=== PATIENT | female | born 1980 | race Caucasian/White ===

== ENCOUNTER 2023-09-06 07:26 | Outpatient (AMB) | payer OTHER, SELFPAY ==
--- NOTE | 2023-09-06 07:29 | MHC.OFFVIS ---
Intake Vital Signs 09/06/23 07:39 Weight 217 lb 6 oz BP 140/100 H Blood Pressure Location Rt brachial Position Sitting Pulse 86 Pulse Source Pulse Oximeter Pulse Oximetry (%) 97 Oxygen Delivery Method Room Air Intake Visit Reasons: F/u to re-establish for Botox - Conf Intake Note: Re establish Botox injection Senior Contract Specialist Required: No Allergies Yellow food dyi Adverse Reaction (Severe, Uncoded 09/06/23 07:33) Triggers migraines Nicoderm patch Adverse Reaction (Intermediate, Uncoded 09/06/23 07:33) Palpatation Amatriptan Adverse Reaction (Uncoded 09/06/23 07:33) Palpatation Medication List - Last Reconciled 09/06/23 by Becca King MD [id number]-liysdeljaalqd-isjn 50-325-40 mg 1 tab PO Q4H PRN lorazepam 1 mg PO DAILY PRN metoprolol tartrate 25 mg PO BID topiramate 50 mg PO DAILY HPI HPI Comments History of Present Illness Details 43y/o female with chronic migraines since her teenage years comes for reestablishing care and treatment with botox.The migraines are usually a pounding bitemporal headache with photophobia, phonophobia, sensitivity to smells, vomiting, occasional visual aura . They can last 3-5 days Medications tried- sumatriptan, zolmitriptan, almotriptan ( caused chest pain and palpitations), excedrin migraine, fiorciet Preventive medications tried- Vit B2 , propranolol, verapramil, gabapentin, topiramate , magnesium she still has 20 migraine days a month and misses work 2-3days a month. she was on botox for 3 years and had a good response - 1 migraine day/month . But she lost follow up when my practice location changed. [facility] Medical History (Updated 09/06/23 @ 08:14 by Becca King MD) Chronic migraine without aura HTN (hypertension) Arthritis, hip Anxiety Surgical History History of hip replacement Family History Maternal Grandmother Breast cancer HTN (hypertension) Mother Heart disease Father Heart disease HTN (hypertension) Bladder cancer Family/Other Psoriasis Alcohol intake: current Alcohol intake frequency: holidays/special occasions only Patient Tobacco Use Status: Current everyday Tobacco user Use of substances other than those prescribed or required for medical reasons: No Physical Exam Vital Signs: Last Vital Signs Pulse 86 09/06/23 07:39 BP 140/100 H 09/06/23 07:39 Pulse Ox 97 09/06/23 07:39 Oxygen Delivery Method Room Air 09/06/23 07:39 Const General: cooperative, healthy appearing and comfortable Nutritional Appearance: overweight Orientation/consciousness: patient oriented x3 Neuro General: patient oriented x3, tone normal, moves all extremities and no focal motor deficits Cranial nerves: Yes Facial sensation intact/muscles of mastication intact, Yes Bilaterally intact EOM present, Yes Nystagmus not present, Yes Normal facial strength present, Yes Midline tongue present and Yes Symmetric palate elevation present Cognition (Neuro): normal cognition Motor exam (neuro): 5/5 motor strength present throughout and Normal motor muscle tone present throughout Assessment & Plan Assessment & Plan (1) Chronic migraine without aura: Code(s): G43.709 - Chronic migraine without aura, not intractable, without status migrainosus Plan Restart botox for management of migraines I will trial her on nurtec 75mg PRN for acute treatment. Medications: New rimegepant (Nurtec ODT) 75 mg PO Q OTHER DAY PRN 10 tabs 3RF migraine headache rimegepant (Nurtec ODT) 75 mg PO Q OTHER DAY PRN 10 tabs 3RF migraine headache ondansetron 4 mg PO Q8H PRN 20 tabs 2RF nausea and vomiting Coding Level of Care Code Est Pt Level 4 (70305) Diagnoses Chronic migraine without aura G43.709
[2023-09-06 07:39] VITALS: BP 140/100; PULSE 86; O2SAT 97
== END 2023-09-06 08:15 | disposition home or self-care (01) ==
PROVIDERS: PCP Nurse Practitioner Family; Visit Provider Psychiatry & Neurology Neurology
DX: G43.709 Chronic migraine without aura, not intractable, without status migrainosus (principal)
CPT/HCPCS: 99214

== ENCOUNTER → 2023-09-06 07:26 | Outpatient (BNVA) | payer OTHER, SELFPAY | PROVIDERS: PCP Nurse Practitioner Family; Visit Provider Psychiatry & Neurology Neurology | DX: G43.709 Chronic migraine without aura, not intractable, without status migrainosus (principal) | CPT/HCPCS: 99212 ==

== ENCOUNTER 2023-10-17 07:46 | Outpatient (AMB) | payer OTHER, SELFPAY ==
--- NOTE | 2023-10-17 08:04 | MHC.OFFVIS ---
Intake Intake Visit Reasons: Botox-Confirmed Intake Note: Patient presents for botox Allergies Yellow food dyi Adverse Reaction (Severe, Uncoded 10/17/23 08:13) Triggers migraines Nicoderm patch Adverse Reaction (Intermediate, Uncoded 10/17/23 08:13) Palpatation Amatriptan Adverse Reaction (Uncoded 10/17/23 08:13) Palpatation Medication List - Last Reconciled 10/17/23 by Becca King MD enuksclxwa-rddclrdqifrbj-qivu 50-325-40 mg 1 tab PO Q4H PRN lorazepam 1 mg PO DAILY PRN metoprolol tartrate 25 mg PO BID ondansetron 4 mg PO Q8H PRN rimegepant (Nurtec ODT) 75 mg PO Q OTHER DAY PRN topiramate 50 mg PO DAILY HPI HPI Comments History of Present Illness Details ? 43y/o female comes for treatment of migraines with botox .How many migraine days prior to botox 20-25 ??? Most frequent reported adverse reactions following injection of botox for chronic migraine include neck pain (9%), headache(5%), eyelid ptosis(4%), migraine(4%), muscular weakness(4%), musculuskeletal stiffness(4%), bronchitis(3%), injection site pain (3%), musculoskeletal pain(3%), myalgia(3%), facial paresis(2%), HTN(2%) and muscle spasms(2%) were discussed in detail. ??? Botulinum toxin typeA 200units Lot no [id number] expiration Nov 2025 was diluted with 4 cc of normal saline . ??? Muscles injected- ??? Frontalis 4 sites ??? Procerus 1 site ??? Sports Physician- 2 sites ??? Temporalis- 8 sites ??? Occipitalis- 6 sites ??? Cervical paraspinals- 4 sites ??? Trapezius- 6 sites- 10 units each ??? 5 units each in 31 site ??? Total use- 185units ??? Discarded-15units [facility] Medical History Chronic migraine without aura HTN (hypertension) Arthritis, hip Anxiety Surgical History History of hip replacement Family History Maternal Grandmother Breast cancer HTN (hypertension) Mother Heart disease Father Heart disease HTN (hypertension) Bladder cancer Family/Other Psoriasis Social History Alcohol intake: current Alcohol intake frequency: holidays/special occasions only Patient Tobacco Use Status: Current everyday Tobacco user Physical Exam Const General: cooperative, healthy appearing and comfortable Nutritional Appearance: overweight Orientation/consciousness: patient oriented x3 Neuro General: patient oriented x3, tone normal, moves all extremities and no focal motor deficits Cranial nerves: Yes Facial sensation intact/muscles of mastication intact, Yes Bilaterally intact EOM present, Yes Nystagmus not present, Yes Normal facial strength present, Yes Midline tongue present and Yes Symmetric palate elevation present Cognition (Neuro): normal cognition Motor exam (neuro): 5/5 motor strength present throughout and Normal motor muscle tone present throughout Office Procedures Botulinum toxin Injection 92524 - Migraine Procedure code (CPT) selection complete Office Meds onabotulinumtoxinA 200 unit solution for injection Performing Provider: Becca King MD [place] [facility] [place] [facility] Administered by: Becca King MD on 10/17/23 09:40 Dose Route Admin Location Dispensed Lot Number Expiration Date [facility] Computational Scientist 185 unit subcut 200 units [id number] 11/16/25 9903-3237-72 ALLERGAN/BOTOX Comments: see HPI Assessment & Plan Assessment & Plan (1) Chronic migraine without aura: Code(s): G43.709 - Chronic migraine without aura, not intractable, without status migrainosus Plan Patient tolerated the procedure well she will call with any side effects Orders: Orders AMB Botulinum toxin Injection Today G43.709 - Chronic migraine without aura, not intractable, without status migrainosus Coding Level of Care Code Est Pt Level 1 (63790) Diagnoses Chronic migraine without aura G43.709 CPT Codes Botox Injection - Botox 3: 42572 - Migraine ([id number])
== END 2023-10-17 08:37 | disposition home or self-care (01) ==
PROVIDERS: PCP Nurse Practitioner Family; Visit Provider Psychiatry & Neurology Neurology
DX: G43.709 Chronic migraine without aura, not intractable, without status migrainosus (principal)
CPT/HCPCS: 64615

== ENCOUNTER → 2023-10-17 07:46 | Outpatient (BNVA) | payer OTHER, SELFPAY | PROVIDERS: PCP Nurse Practitioner Family; Visit Provider Psychiatry & Neurology Neurology | DX: G43.709 Chronic migraine without aura, not intractable, without status migrainosus (principal) | CPT/HCPCS: 64615; 99211; J0585 ==

== ENCOUNTER 2024-01-23 07:54 | Outpatient (AMB) | payer OTHER, SELFPAY ==
--- NOTE | 2024-01-23 07:59 | A.OFFVIS_ITS ---
Intake Vital Signs 01/23/24 08:02 Height 5 ft 4 in Weight 220 lb BMI 37.8 BP 160/96 H Blood Pressure Location Rt brachial Position Sitting Respiration 17 Pulse 80 Pulse Source Pulse Oximeter Pulse Oximetry (%) 97 Oxygen Delivery Method Room Air Intake Visit Reasons: Botox -CONF Intake Note: Pt presents to the office for Botox injections. Cafe Aide Required: No Allergies Yellow food dyi Adverse Reaction (Severe, Uncoded 01/23/24 07:59) Triggers migraines Nicoderm patch Adverse Reaction (Intermediate, Uncoded 01/23/24 07:59) Palpatation Amatriptan Adverse Reaction (Uncoded 01/23/24 07:59) Palpatation Medication List - Last Reconciled 01/23/24 by Becca King MD rmqqodwfiy-wmnjqatcusdlb-fdpd 50-325-40 mg 1 tab PO Q4H PRN lorazepam 1 mg PO DAILY PRN metoprolol tartrate 25 mg PO BID ondansetron 4 mg PO Q8H PRN rimegepant (Nurtec ODT) 75 mg PO Q OTHER DAY PRN topiramate 50 mg PO DAILY HPI HPI Comments History of Present Illness Details ? 43y/o female comes for treatment of migraines with botox .How many migraine days prior to botox 2 0-25 ??? Most frequent reported adverse reactions following injection of botox for chronic migraine include neck pain (9%), headache(5%), eyelid ptosis(4%), migraine(4%), muscular weakness(4%), musculuskeletal stiffness(4%), bronc hitis(3%), injection site pain (3%), musculoskeletal pain(3%), myalgia(3%), facial paresis(2%), HTN(2%) and muscle spasms(2%) were discussed in detail. ??? Botulinum toxin typeA 200units Lot no [id number] expiration March 2026 was diluted with 4 cc of normal saline . ??? Muscles injected- ??? Frontalis 4 sites ??? Procerus 1 site ??? Restaurant Cashier- 2 sites ??? Temporalis- 8 sites ??? Occipitalis- 6 sites ??? Cervical paraspinals- 4 sites ??? Trapezius- 6 sites- 10 units each ??? 5 units each in 31 site ??? Total use- 185units ??? Discarded-15units [facility] Medical History Chronic migraine without aura HTN (hypertension) Arthritis, hip Anxiety Surgical History History of hip replacement Family History Maternal Grandmother Breast cancer HTN (hypertension) Mother Heart disease Father Heart disease HTN (hypertension) Bladder cancer Family/Other Psoriasis Social History Alcohol intake: current Alcohol intake frequency: holidays/special occasions only Patient Tobacco Use Status: Current everyday Tobacco user Physical Exam Vital Signs: Last Vital Signs Pulse 80 01/23/24 08:02 Resp 17 01/23/24 08:02 BP 160/96 H 01/23/24 08:02 Pulse Ox 97 01/23/24 08:02 Oxygen Delivery Method Room Air 01/23/24 08:02 BMI result Body Mass Index 37.8 Const General: cooperative, healthy appearing and comfortable Nutritional Appearance: overweight Orientation/consciousness: patient oriented x3 Neuro General: patient oriented x3, tone normal, moves all extremities and no focal motor deficits Cranial nerves: Yes Facial sensation intact/muscles of mastication intact, Yes Bilaterally intact EOM present, Yes Nystagmus not present, Yes Normal facial strength present, Yes Midline tongue present and Yes Symmetric palate elevation present Cognition (Neuro): normal cognition Motor exam (neuro): 5/5 motor strength present throughout and Normal motor muscle tone present throughout Office Procedures Botulinum toxin Injection 34267 - Migraine Procedure code (CPT) selection complete Office Meds onabotulinumtoxinA 200 unit solution for injection Performing Provider: Becca King MD Performing Location: [facility] [place] [facility] Administered by: Becca King MD on 01/23/24 08:30 Dose Route Admin Location Dispensed Lot Number Expiration Date [facility] Building Services Engineer 185 unit IM 200 units [id number] 03/16/26 8620-6570-32 ALLERGAN/BOTOX Comments: see hpi Assessment & Plan Assessment & Plan (1) Chronic migraine without aura: Code(s): G43.709 - Chronic migraine without aura, not intractable, without status migrainosus Plan Patient tolerated the procedure well she will call with any side effects Orders: Orders AMB Botulinum toxin Injection Today G43.709 - Chronic migraine without aura, not intractable, without status migrainosus Medications: New onabotulinumtoxinA 200 units IM ONCE 1 ea 0RF migraine headache G43.709 - Chronic migraine without aura, not intractable, without status migrainosus Coding Level of Care Code Est Pt Level 1 (84276) Diagnoses Chronic migraine without aura G43.709 CPT Codes Botox Injection - Botox 3: 17058 - Migraine ([id number])
[2024-01-23 08:02] VITALS: BP 160/96; PULSE 80; RESP 17; O2SAT 97; BMI 37.8
== END 2024-01-23 08:26 | disposition home or self-care (01) ==
PROVIDERS: PCP Nurse Practitioner Family; Visit Provider Psychiatry & Neurology Neurology
DX: G43.709 Chronic migraine without aura, not intractable, without status migrainosus (principal)
CPT/HCPCS: 64615

== ENCOUNTER → 2024-01-23 07:54 | Outpatient (BNVA) | payer OTHER, SELFPAY | PROVIDERS: PCP Nurse Practitioner Family; Visit Provider Psychiatry & Neurology Neurology | DX: G43.709 Chronic migraine without aura, not intractable, without status migrainosus (principal) | CPT/HCPCS: 64615; 99211; J0585 ==

== ENCOUNTER 2024-04-24 07:43 | Outpatient (AMB) | payer OTHER, SELFPAY ==
--- NOTE | 2024-04-24 07:55 | MHC.OFFVIS ---
Vital Signs 04/24/24 07:57 Height 5 ft 4 in Weight 220 lb BMI 37.8 BP 156/80 H Blood Pressure Location Rt brachial Position Sitting Respiration 16 Pulse 78 Pulse Source Pulse Oximeter Pulse Oximetry (%) 100 Oxygen Delivery Method Room Air Intake Visit Reasons: Botox - Confirmed Intake Note: Pt presents to the office for Botox injections for migraines. Auto Body Repair Teacher Required: No Allergies Yellow food dyi Adverse Reaction (Severe, Uncoded 04/24/24 07:57) Triggers migraines Nicoderm patch Adverse Reaction (Intermediate, Uncoded 04/24/24 07:57) Palpatation Amatriptan Adverse Reaction (Uncoded 04/24/24 07:57) Palpatation Medication List - Last Reconciled 04/24/24 by Becca King MD upizrfguyb-xenppdjzjojhb-gxvt 50-325-40 mg 1 tab PO Q4H PRN lorazepam 1 mg PO DAILY PRN metoprolol tartrate 25 mg PO BID ondansetron 4 mg PO Q8H PRN rimegepant (Nurtec ODT) 75 mg PO Q OTHER DAY PRN topiramate 50 mg PO DAILY HPI Comments Details: ? 44y/o female comes for treatment of migraines with botox .How many migraine days prior to botox 20-25 ??? Most frequent reported adverse reactions following injection of botox for chronic migraine include neck pain (9%), headache(5%), eyelid ptosis(4%), migraine(4%), muscular weakness(4%), musculuskeletal stiffness(4%), bronchitis(3%), injection site pain (3%), musculoskeletal pain(3%), myalgia(3%), facial paresis(2%), HTN(2%) and muscle spasms(2%) were discussed in detail. ??? Botulinum toxin typeA 200units Lot no [id number] expiration March 2026 was diluted with 4 cc of normal saline . ??? Muscles injected- ??? Frontalis 4 sites ??? Procerus 1 site ??? Risk Management Specialist- 2 sites ??? Temporalis- 8 sites ??? Occipitalis- 6 sites ??? Cervical paraspinals- 4 sites ??? Trapezius- 6 sites- 10 units each ??? 5 units each in 31 site ??? Total use- 185units ??? Discarded-15units [facility] Medical History Chronic migraine without aura HTN (hypertension) Arthritis, hip Anxiety Surgical History History of hip replacement Family History Maternal Grandmother Breast cancer HTN (hypertension) Mother Heart disease Father Heart disease HTN (hypertension) Bladder cancer Family/Other Psoriasis Social History Alcohol intake: current Alcohol intake frequency: holidays/special occasions only Patient Tobacco Use Status: Current everyday Tobacco user Physical Exam Vital Signs: Last Vital Signs Pulse 78 04/24/24 07:57 Resp 16 04/24/24 07:57 BP 156/80 H 04/24/24 07:57 Pulse Ox 100 04/24/24 07:57 Oxygen Delivery Method Room Air 04/24/24 07:57 BMI result Body Mass Index 37.8 Const General: cooperative, healthy appearing and comfortable Nutritional Appearance: overweight Orientation/consciousness: patient oriented x3 Neuro General: patient oriented x3, tone normal, moves all extremities and no focal motor deficits Cranial nerves: Yes Facial sensation intact/muscles of mastication intact, Yes Bilaterally intact EOM present, Yes Nystagmus not present, Yes Normal facial strength present, Yes Midline tongue present and Yes Symmetric palate elevation present Cognition (Neuro): normal cognition Motor exam (neuro): 5/5 motor strength present throughout and Normal motor muscle tone present throughout Office Procedures Botulinum toxin Injection 68330 - Migraine Procedure code (CPT) selection complete Office Meds onabotulinumtoxinA 200 unit solution for injection Performing Provider: Becca King MD Performing Location: [facility] [place] [facility] Administered by: Becca King MD on 04/24/24 09:25 Dose Route Admin Location Dispensed Lot Number Expiration Date [facility] [place] [employer] Sales Representative 200 unit subcut 200 units [id number] 03/16/26 6284-9098-71 ALLERGAN/BOTOX Comments: see HPI Assessment & Plan Assessment & Plan (1) Chronic migraine without aura: Code(s): G43.709 - Chronic migraine without aura, not intractable, without status migrainosus Category: Medical Plan Patient tolerated the procedure well she will call with any side effects Orders: Orders AMB Botulinum toxin Injection Today G43.709 - Chronic migraine without aura, not intractable, without status migrainosus Medications: New onabotulinumtoxinA 200 units subcut ONCE 1 ea 0RF migraine G43.709 - Chronic migraine without aura, not intractable, without status migrainosus Coding Level of Care Code Est Pt Level 1 (47012) Diagnoses Chronic migraine without aura G43.709 CPT Codes Botox Injection - Botox 3: 88671 - Migraine ([id number])
[2024-04-24 07:57] VITALS: BP 156/80; PULSE 78; RESP 16; O2SAT 100; BMI 37.8
== END 2024-04-24 08:26 | disposition home or self-care (01) ==
PROVIDERS: PCP Nurse Practitioner Family; Visit Provider Psychiatry & Neurology Neurology
DX: G43.709 Chronic migraine without aura, not intractable, without status migrainosus (principal)
CPT/HCPCS: 64615

== ENCOUNTER → 2024-04-24 07:43 | Outpatient (BNVA) | payer OTHER, SELFPAY | PROVIDERS: PCP Nurse Practitioner Family; Visit Provider Psychiatry & Neurology Neurology | DX: G43.709 Chronic migraine without aura, not intractable, without status migrainosus (principal) | CPT/HCPCS: 64615; 99211; J0585 ==

== ENCOUNTER 2024-07-25 08:06 | Outpatient (AMB) | payer OTHER, SELFPAY ==
--- NOTE | 2024-07-25 08:09 | MHC.OFFVIS ---
Vital Signs 07/25/24 08:12 Height 5 ft 4 in Weight 236 lb 2 oz BMI 40.5 BP 136/72 Blood Pressure Location Rt brachial Position Sitting Pulse 99 Pulse Source Pulse Oximeter Pulse Oximetry (%) 98 Oxygen Delivery Method Room Air Intake Visit Reasons: Botox Intake Note: Patient presents for a chronic migraine follow up. ( Botox ) Manager Investment Banking Required: No Accompanied by: Self / Same As Patient Allergies Yellow food dyi Adverse Reaction (Severe, Uncoded 04/24/24 07:57) Triggers migraines Nicoderm patch Adverse Reaction (Intermediate, Uncoded 04/24/24 07:57) Palpatation Amatriptan Adverse Reaction (Uncoded 04/24/24 07:57) Palpatation Medication List - Last Reconciled 07/25/24 by Becca King MD huqdjqkeaz-spduzovqeywbe-mntq 50-325-40 mg 1 tab PO Q4H PRN lorazepam 1 mg PO DAILY PRN metoprolol tartrate 25 mg PO BID ondansetron 4 mg PO Q8H PRN rimegepant (Nurtec ODT) 75 mg PO Q OTHER DAY PRN topiramate 50 mg PO DAILY HPI Comments Details: ? 44y/o female comes for treatment of migraines with botox .How many migraine days prior to botox 20-25 ??? Most frequent reported adverse reactions following injection of botox for chronic migraine include neck pain (9%), headache(5%), eyelid ptosis(4%), migraine(4%), muscular weakness(4%), musculuskeletal stiffness(4%), bronchitis(3%), injection site pain (3%), musculoskeletal pain(3%), myalgia(3%), facial paresis(2%), HTN(2%) and muscle spasms(2%) were discussed in detail. ??? Botulinum toxin typeA 200units Lot no [id number] expiration Sep 2026 was diluted with 4 cc of normal saline . ??? Muscles injected- ??? Frontalis 4 sites ??? Procerus 1 site ??? Towel Inspector- 2 sites ??? Temporalis- 8 sites ??? Occipitalis- 6 sites ??? Cervical paraspinals- 4 sites ??? Trapezius- 6 sites- 10 units each ??? 5 units each in 31 site ??? Total use- 185units ??? Discarded-15units [facility] Medical History Chronic migraine without aura HTN (hypertension) Arthritis, hip Anxiety Surgical History History of hip replacement Family History Maternal Grandmother Breast cancer HTN (hypertension) Mother Heart disease Father Heart disease HTN (hypertension) Bladder cancer Family/Other Psoriasis Social History Alcohol intake: current Alcohol intake frequency: holidays/special occasions only Patient Tobacco Use Status: Current everyday Tobacco user Physical Exam Vital Signs: Last Vital Signs Pulse 99 07/25/24 08:12 BP 136/72 07/25/24 08:12 Pulse Ox 98 07/25/24 08:12 Oxygen Delivery Method Room Air 07/25/24 08:12 BMI result Body Mass Index 40.5 Const General: cooperative, healthy appearing and comfortable Nutritional Appearance: overweight Orientation/consciousness: patient oriented x3 Neuro General: patient oriented x3, tone normal, moves all extremities and no focal motor deficits Cranial nerves: Yes Facial sensation intact/muscles of mastication intact, Yes Bilaterally intact EOM present, Yes Nystagmus not present, Yes Normal facial strength present, Yes Midline tongue present and Yes Symmetric palate elevation present Cognition (Neuro): normal cognition Motor exam (neuro): 5/5 motor strength present throughout and Normal motor muscle tone present throughout Office Procedures Botulinum toxin Injection 75436 - Migraine Procedure code (CPT) selection complete Office Meds onabotulinumtoxinA 200 unit solution for injection Performing Provider: Becca King MD Performing Location: [facility] [place] [facility] Administered by: Becca King MD on 07/25/24 08:46 Dose Route Admin Location Dispensed Lot Number Expiration Date [facility] Detective Lieutenant 185 unit subcut 200 units [id number] 09/15/26 5359-9944-11 ALLERGAN/BOTOX Comments: see HPI Assessment & Plan Assessment & Plan (1) Chronic migraine without aura: Code(s): G43.709 - Chronic migraine without aura, not intractable, without status migrainosus Category: Medical Qualifiers: Status migrainosus presence: without status migrainosus Intractability: intractable Qualified Code(s): G43.719 - Chronic migraine without aura, intractable, without status migrainosus Plan Patient tolerated the procedure well she will call with any side effects Orders: Orders AMB Botulinum toxin Injection Today G43.719 - Chronic migraine without aura, intractable, without status migrainosus Medications: New onabotulinumtoxinA 200 units subcut ONCE 1 ea 0RF migraine G43.719 - Chronic migraine without aura, intractable, without status migrainosus Coding Level of Care Code Est Pt Level 1 (46942) Diagnoses Intractable chronic migraine without aura and without status migrainosus G43.719 Status migrainosus presence: without status migrainosus Intractability: intractable CPT Codes Botox Injection - Botox 3: 59418 - Migraine ([id number])
[2024-07-25 08:12] VITALS: BP 136/72; PULSE 99; O2SAT 98; BMI 40.5
== END 2024-07-25 08:33 | disposition home or self-care (01) ==
PROVIDERS: PCP Nurse Practitioner Family; Visit Provider Psychiatry & Neurology Neurology
DX: G43.719 Chronic migraine without aura, intractable, without status migrainosus (principal)
CPT/HCPCS: 64615

== ENCOUNTER → 2024-07-25 08:06 | Outpatient (BNVA) | payer OTHER, SELFPAY | PROVIDERS: PCP Nurse Practitioner Family; Visit Provider Psychiatry & Neurology Neurology | DX: G43.719 Chronic migraine without aura, intractable, without status migrainosus (principal) | CPT/HCPCS: 64615; 99211; J0585 ==

== ENCOUNTER 2024-10-29 08:39 | Outpatient (AMB) | payer OTHER, SELFPAY ==
--- NOTE | 2024-10-29 08:50 | A.OFFVIS_ITS ---
Vital Signs 10/29/24 08:53 Height 5 ft 4 in Intake Visit Reasons: Botox Intake Note: Patient presents for botox injection Allergies Yellow food dyi Adverse Reaction (Severe, Uncoded 10/29/24 08:53) Triggers migraines Nicoderm patch Adverse Reaction (Intermediate, Uncoded 10/29/24 08:53) Palpatation Amatriptan Adverse Reaction (Uncoded 10/29/24 08:53) Palpatation Medication List - Last Reconciled 10/29/24 by Becca King MD [id number]-[id number] 50-325-40 mg 1 tab PO Q4H PRN lorazepam 1 mg PO DAILY PRN metoprolol tartrate 25 mg PO BID ondansetron 4 mg PO Q8H PRN rimegepant (Nurtec ODT) 75 mg PO Q OTHER DAY PRN topiramate 50 mg PO DAILY HPI Comments Details: ? 44y/o female comes for treatment of migraines with botox .How many migraine days prior to botox 20-25 ??? Most frequent reported adverse reactions following injection of botox for chronic migraine include neck pain (9%), headache(5%), eyelid ptosis(4%), migraine(4%), muscular weakness(4%), musculuskeletal stiffness(4%), bronchitis(3%), injection site pain (3%), musculoskeletal pain(3%), myalgia(3%), facial paresis(2%), HTN(2%) and muscle spasms(2%) were discussed in detail. ??? Botulinum toxin typeA 200units Lot no [id number] expiration December 2026 was diluted with 4 cc of normal saline . ??? Muscles injected- ??? Frontalis 4 sites ??? Procerus 1 site ??? Vibrating Screen Operator- 2 sites ??? Temporalis- 8 sites ??? Occipitalis- 6 sites ??? Cervical paraspinals- 4 sites ??? Trapezius- 6 sites- 10 units each ??? 5 units each in 31 site ??? Total use- 185units ??? Discarded-15units [facility] Medical History Chronic migraine without aura HTN (hypertension) Arthritis, hip Anxiety Surgical History History of hip replacement Family History Maternal Grandmother Breast cancer HTN (hypertension) Mother Heart disease Father Heart disease HTN (hypertension) Bladder cancer Family/Other Psoriasis Social History Alcohol intake: current Alcohol intake frequency: holidays/special occasions only Patient Tobacco Use Status: Current everyday Tobacco user Physical Exam Const General: cooperative, healthy appearing and comfortable Nutritional Appearance: overweight Orientation/consciousness: patient oriented x3 Neuro General: patient oriented x3, tone normal, moves all extremities and no focal motor deficits Cranial nerves: Yes Facial sensation intact/muscles of mastication intact, Yes Bilaterally intact EOM present, Yes Nystagmus not present, Yes Normal facial strength present, Yes Midline tongue present and Yes Symmetric palate elevation present Cognition (Neuro): normal cognition Motor exam (neuro): 5/5 motor strength present throughout and Normal motor muscle tone present throughout Office Procedures Botulinum toxin Injection 37301 - Migraine Procedure code (CPT) selection complete Office Meds onabotulinumtoxinA 200 unit solution for injection Performing Provider: Becca King MD [place] [facility] [place] [facility] Administered by: Becca King MD on 10/29/24 09:06 Dose Route Admin Location Dispensed Lot Number Expiration Date [facility] Spanish Linguist 185 unit IM 200 units [id number] ALLERGAN/BOTOX Comments: see HPI Assessment & Plan Assessment & Plan (1) Chronic migraine without aura: Code(s): G43.709 - Chronic migraine without aura, not intractable, without status migrainosus Category: Medical Qualifiers: Status migrainosus presence: without status migrainosus Intractability: intractable Qualified Code(s): G43.719 - Chronic migraine without aura, intractable, without status migrainosus Plan Patient tolerated the procedure well she will call with any side effects Orders: Orders AMB Botulinum toxin Injection Today G43.719 - Chronic migraine without aura, intractable, without status migrainosus Medications: New onabotulinumtoxinA 200 units IM ONCE 1 ea 0RF migraine headache G43.719 - Chronic migraine without aura, intractable, without status migrainosus Coding Level of Care Code Est Pt Level 1 (36324) Diagnoses Intractable chronic migraine without aura and without status migrainosus G43.719 Status migrainosus presence: without status migrainosus Intractability: intractable CPT Codes Botox Injection - Botox 3: 58930 - Migraine ([id number])
== END 2024-10-29 08:58 | disposition home or self-care (01) ==
PROVIDERS: PCP Nurse Practitioner Family; Visit Provider Psychiatry & Neurology Neurology
DX: G43.719 Chronic migraine without aura, intractable, without status migrainosus (principal)
CPT/HCPCS: 64615

== ENCOUNTER → 2024-10-29 08:39 | Outpatient (BNVA) | payer OTHER, SELFPAY | PROVIDERS: PCP Nurse Practitioner Family; Visit Provider Psychiatry & Neurology Neurology | DX: G43.719 Chronic migraine without aura, intractable, without status migrainosus (principal) | CPT/HCPCS: 64615; 99211; J0585 ==

== ENCOUNTER 2025-01-28 08:38 | Outpatient (AMB) | payer OTHER, SELFPAY ==
--- NOTE | 2025-01-28 08:39 | A.OFFVIS_ITS ---
Vital Signs 01/28/25 08:40 Height 5 ft 4 in Weight 255 lb BMI 43.8 BP 138/90 H Blood Pressure Location Rt brachial Position Sitting Pulse 106 H Pulse Source Pulse Oximeter Pulse Oximetry (%) 97 Oxygen Delivery Method Room Air Intake Visit Reasons: Botox Intake Note: Patient presents for botox injection. Pharmacy supplied Allergies Yellow food dyi Adverse Reaction (Severe, Uncoded 01/28/25 08:43) Triggers migraines Nicoderm patch Adverse Reaction (Intermediate, Uncoded 01/28/25 08:43) Palpatation Amatriptan Adverse Reaction (Uncoded 01/28/25 08:43) Palpatation Medication List - Last Reconciled 01/28/25 by Becca King MD [id number]-[id number] 50-325-40 mg 1 tab PO Q4H PRN lorazepam 1 mg PO DAILY PRN metoprolol tartrate 25 mg PO BID ondansetron 4 mg PO Q8H PRN rimegepant (Nurtec ODT) 75 mg PO Q OTHER DAY PRN topiramate 50 mg PO DAILY HPI Comments Details: ? 45y/o female comes for treatment of migraines with botox How many migraine days prior to botox 20-30 days How long do the migraines last- 1 day Intensity of migraine 10/10 ER visits related to migraine - 1/month Effectiveness of botox from last two treatment(s) How many migraine days since receiving treatment: 6 a month Change? in intensity of migraine? 5/10 Change in frequency of migraine?decreased Change in use of acute medication for migraine?decreased Change in quality of life? improved ER visits related to migraine?none Have at least three months elapsed since last treatment (Last botox date - frequency of injections)3 months ??? Most frequent reported adverse reactions following injection of botox for chronic migraine include neck pain (9%), headache(5%), eyelid ptosis(4%), migraine(4%), muscular weakness(4%), musculuskeletal stiffness(4%), bronchitis(3%), injection site pain (3%), musculoskeletal pain(3%), myalgia(3%), facial paresis(2%), HTN(2%) and muscle spasms(2%) were discussed in detail. ??? Botulinum toxin typeA 200units Lot no [id number] expiration January 2027 was diluted with 4 cc of normal saline . ??? Muscles injected- ??? Frontalis 4 sites ??? Procerus 1 site ??? Director Of Mechanical Engineering- 2 sites ??? Temporalis- 8 sites ??? Occipitalis- 6 sites ??? Cervical paraspinals- 4 sites ??? Trapezius- 6 sites- 10 units each ??? 5 units each in 31 site ??? Total use- 185units ??? Discarded-15units [facility] Medical History Chronic migraine without aura HTN (hypertension) Arthritis, hip Anxiety Surgical History History of hip replacement Family History Maternal Grandmother Breast cancer HTN (hypertension) Mother Heart disease Father Heart disease HTN (hypertension) Bladder cancer Family/Other Psoriasis Social History Alcohol intake: current Alcohol intake frequency: holidays/special occasions only Patient Tobacco Use Status: Current everyday Tobacco user Physical Exam Vital Signs: Last Vital Signs Pulse 106 H 01/28/25 08:40 BP 138/90 H 01/28/25 08:40 Pulse Ox 97 01/28/25 08:40 Oxygen Delivery Method Room Air 01/28/25 08:40 BMI result Body Mass Index 43.8 Const General: cooperative, healthy appearing and comfortable Nutritional Appearance: overweight Orientation/consciousness: patient oriented x3 Neuro General: patient oriented x3, tone normal, moves all extremities and no focal motor deficits Cranial nerves: Yes Facial sensation intact/muscles of mastication intact, Yes Bilaterally intact EOM present, Yes Nystagmus not present, Yes Normal facial strength present, Yes Midline tongue present and Yes Symmetric palate elevation present Cognition (Neuro): normal cognition Motor exam (neuro): 5/5 motor strength present throughout and Normal motor muscle tone present throughout Office Procedures Botulinum toxin Injection 90858 - Migraine Procedure code (CPT) selection complete Office Meds onabotulinumtoxinA 200 unit solution for injection Performing Provider: Becca King MD Performing Location: [facility] [place] [facility] Administered by: Becca King MD on 01/28/25 09:10 Dose Route Admin Location Dispensed Lot Number Expiration Date [employer] Oil Pit Attendant 185 unit subcut 200 units [id number] ALLERGAN/BOTOX Comments: see HPI Assessment & Plan Assessment & Plan (1) Chronic migraine without aura: Code(s): G43.709 - Chronic migraine without aura, not intractable, without status migrainosus Category: Medical Qualifiers: Status migrainosus presence: without status migrainosus Intractability: intractable Qualified Code(s): G43.719 - Chronic migraine without aura, intractable, without status migrainosus Plan Patient tolerated the procedure well she will call with any side effects Orders: Orders AMB Botulinum toxin Injection Today G43.719 - Chronic migraine without aura, intractable, without status migrainosus Medications: New onabotulinumtoxinA 200 units subcut ONCE 1 ea 0RF G43.719 - Chronic migraine without aura, intractable, without status migrainosus Coding Level of Care Code Est Pt Level 1 (17682) Diagnoses Intractable chronic migraine without aura and without status migrainosus G43.719 Status migrainosus presence: without status migrainosus Intractability: intractable CPT Codes Botox Injection - Botox 3: 53812 - Migraine ([id number])
[2025-01-28 08:40] VITALS: BP 138/90; PULSE 106; O2SAT 97; BMI 43.8
--- OUTSIDE RECORDS SUMMARY | 2025-01-28 08:57 | XMS_ITS | Clinical Summary ---
Author Organization [employer] Address [address] [facility] [place] [address] Care Team Providers Care Paving Inspector Name Role Phone Unavailable Primary Care Provider Unavailabl e Allergies No known active allergies Medications metoprolol tartrate (Lopressor) 25 MG tablet Take 25 mg by mouth 2 times daily. 4 Active LORazepam (Ativan) 1 MG tablet Take 1 mg by mouth if needed each day. 4 Active topiramate (Topamax) 25 MG tablet Take 50 mg by mouth in the morning. 3 Active butalbital-acet aminophen-caffe ine (Fioricet) 50-300-40 MG capsule TAKE 1 CAPSULE BY MOUTH EVERY 4 HOURS NEEDED HEADACHE 3 Active acetaminophen (Tylenol 8 Hour) 650 MG ER tablet Take 650 mg by mouth every 8 (eight) hours if needed for mild pain. Do not crush, chew, or split. Active ibuprofen 600 MG tablet Take by mouth. Activ e amoxicillin (Amoxil) 500 MG capsule Take 4 caps 1 hour prior dental procedure 12 capsule 4 Active Active Problems Problem Noted Date Diagnosed Date Periodontal disease 11/24/2023 Dental caries into pulp 11/24/2023 Immunizations Name Administration Dates Next Due Tdap 03/07/2023 Social History Tobacco Use Types Packs/Day Years Used Date Smoking Tobacco: Every Day Cigarettes Smokeless Tobacco: Never Tobacco Cessation:Ready to Q uit: Not Asked; Counseling Given: Not Answered Alcohol Use Standard Drinks/Week Comments Defer 0 (1 standard drink = 0.6 oz pur e alcohol) Comments Unknown Sex and Gender Information Value Date Recorded Sex Assigned at Female 11/22/2023 9:07 AM EST Legal Sex Female 8:51 AM EST Gender Identity Female 11/22/2023 9:07 AM EST Sexual Orientation Choose not to disclose 2023 9:07 AM EST Last Filed Vital Signs Vital Sign Reading Time Taken Comments Blood Pressure 126/80 11/24/2023 1:57 PM EST Pulse - - Temperature - - Respiratory Rate - - Oxygen Saturation - - Inhaled Oxygen Concentration - - Weight - - Height - - Body Mass Index - - Plan of Treatment Health Maintenance Due Date Last Done Comments CT Colonography 1980 Colonoscopy 1980 Colorectal Cancer Screening 1980 Dental Oral Exam 1980 Dental Prophylaxis 1980 Dental X-Ray: Full Mouth 1980 Depression Screening 1980 FIT DNA/Cologuard 1980 FIT 1980 FOBT 1980 HIV Screening 1980 Lipid Panel 1980 SDOH Screening 1980 Sigmoidoscopy 1980 Alcohol/Substance Use Screening 1992 Family Planning (PISQ) 01/26/1995 Hepatitis C Screening 01/26/1998 Hepatitis B Vaccines (1 of 3 - 19+ 3-dose series) 01/26/1999 Pneumococcal Vaccine: Pediatrics (0 to 5 Years) and At-Risk Patients (6 to 49) Years) (1 of 2 - PCV) 01/26/1999 Pap Smear 01/26/2001 Cervical Cancer Screening 01/26/2010 HPV/Cotest 01/26/2010 Mammogram 2020 COVID-19 Vaccine (1 - 2023- season) 2024 Influenza Vaccine (#1) 2024 , 08/16/2019, 07/26/2018, Additional history exists Dental X-Ray: Bitewings 11/23/2024 11/22/2023 Tobacco Screening 03/26/2025 03/26/2024 Zoster Vaccines (1 of 2) 01/26/2030 DTaP/Tdap/Td Vaccines (3 - Td or Tdap) 03/07/2033 03/07/2023, 07/23/2010, 02/20/2003 RSV Patients and Patients Aged 60 years or older (1 - 1-dose 75+ series) 01/26/2055 HIB Vaccines Aged Out No longer eligi ble based on patient's age to complete this topic HPV Vaccines Aged Out No longer eligi ble based on patient's age to complete this topic Hepatitis A Vaccines Aged Out No long er eligible based on patient's age to complete this topic IPV Vaccines Aged Out No longer eligi ble based on patient's age to complete this topic Meningococcal Vaccine Aged Out No rickie tiffanie eligible based on patient's age to complete this topic RSV under 20 months Aged Out No longe r eligible based on patient's age to complete this topic Rotavirus Vaccines Aged Out No longer eligible based on patient's age to complete this topic Procedures Procedure Name Priority Date/Time Associated Diagnosis Comments BITEWING - SINGLE RADIOGRAPHIC IMAGE Routine 11/22/2023 1:00 PM EST Dental caries from Last 3 Months or Most Recently Relevant to Health Maintenance Insurance [facility] [employer] STAND ADULT
== END 2025-01-28 09:04 | disposition home or self-care (01) ==
LOC: HO.HSMS 08:38
PROVIDERS: PCP Nurse Practitioner Family; Visit Provider Psychiatry & Neurology Neurology
DX: G43.719 Chronic migraine without aura, intractable, without status migrainosus (principal)
CPT/HCPCS: 64615

== ENCOUNTER → 2025-01-28 08:38 | Outpatient (BNVA) | payer OTHER, SELFPAY | PROVIDERS: PCP Nurse Practitioner Family; Visit Provider Psychiatry & Neurology Neurology | DX: G43.719 Chronic migraine without aura, intractable, without status migrainosus (principal) | CPT/HCPCS: 64615; 99211; J0585 ==

== ENCOUNTER 2025-04-29 08:39 | Outpatient (AMB) | payer OTHER, SELFPAY ==
[2025-04-29 08:57] VITALS: BP 160/100; PULSE 82; O2SAT 96; BMI 45.1
--- NOTE | 2025-04-29 08:57 | A.OFFVIS_ITS ---
Vital Signs 04/29/25 08:57 Height 5 ft 4 in Weight 263 lb BMI 45.1 BP 160/100 H Blood Pressure Location Lt brachial Position Sitting Pulse 82 Pulse Source Pulse Oximeter Pulse Oximetry (%) 96 Oxygen Delivery Method Room Air Intake Visit Reasons: Botox Intake Note: Patient presents for botox injection practice supplied Accompanied by: Self / Same As Patient Allergies Yellow food dyi Adverse Reaction (Severe, Uncoded 04/29/25 08:57) Triggers migraines Nicoderm patch Adverse Reaction (Intermediate, Uncoded 04/29/25 08:57) Palpatation Amatriptan Adverse Reaction (Uncoded 04/29/25 08:57) Palpatation Medication List - Last Reconciled 04/29/25 by Becca King MD [id number] 50-325-40 mg 1 tab PO Q4H PRN lisinopril 10 mg PO DAILY lorazepam 1 mg PO DAILY PRN metoprolol tartrate 25 mg PO BID ondansetron 4 mg PO Q8H PRN HPI Comments Details: ? 45y/o female comes for treatment of migraines with botox How many migraine days prior to botox 20-30 days How long do the migraines last- 1 day Intensity of migraine 10/10 ER visits related to migraine - 1/month Effectiveness of botox from last two treatment(s) How many migraine days since receiving treatment: 6 a month Change? in intensity of migraine? 5/10 Change in frequency of migraine?decreased Change in use of acute medication for migraine?decreased Change in quality of life? improved ER visits related to migraine?none Have at least three months elapsed since last treatment (Last botox date - frequency of injections)3 months ??? Most frequent reported adverse reactions following injection of botox for chronic migraine include neck pain (9%), headache(5%), eyelid ptosis(4%), migraine(4%), muscular weakness(4%), musculuskeletal stiffness(4%), bronchitis(3%), injection site pain (3%), musculoskeletal pain(3%), myalgia(3%), facial paresis(2%), HTN(2%) and muscle spasms(2%) were discussed in detail. ??? Botulinum toxin typeA 200units Lot no [id number] expiration Jul 2027 was diluted with 4 cc of normal saline . ??? Muscles injected- ??? Frontalis 4 sites ??? Procerus 1 site ??? Clay Press Operator- 2 sites ??? Temporalis- 8 sites ??? Occipitalis- 6 sites ??? Cervical paraspinals- 4 sites ??? Trapezius- 6 sites- 10 units each ??? 5 units each in 31 site ??? Total use- 185units ??? Discarded-15units [facility] Medical History Chronic migraine without aura HTN (hypertension) Arthritis, hip Anxiety Surgical History History of hip replacement Family History Maternal Grandmother Breast cancer HTN (hypertension) Mother Heart disease Father Heart disease HTN (hypertension) Bladder cancer Family/Other Psoriasis Social History Alcohol intake: current Alcohol intake frequency: holidays/special occasions only Patient Tobacco Use Status: Current everyday Tobacco user Physical Exam Vital Signs: Last Vital Signs Pulse 82 04/29/25 08:57 BP 160/100 H 04/29/25 08:57 Pulse Ox 96 04/29/25 08:57 Oxygen Delivery Method Room Air 04/29/25 08:57 BMI result Body Mass Index 45.1 Const General: cooperative, healthy appearing and comfortable Nutritional Appearance: overweight Orientation/consciousness: patient oriented x3 Neuro General: patient oriented x3, tone normal, moves all extremities and no focal motor deficits Cranial nerves: Yes Facial sensation intact/muscles of mastication intact, Yes Bilaterally intact EOM present, Yes Nystagmus not present, Yes Normal facial strength present, Yes Midline tongue present and Yes Symmetric palate elevation present Cognition (Neuro): normal cognition Motor exam (neuro): 5/5 motor strength present throughout and Normal motor muscle tone present throughout Office Procedures Botulinum toxin Injection 34099 - Migraine Procedure code (CPT) selection complete Office Meds onabotulinumtoxinA 200 unit solution for injection Performing Provider: Becca King MD Performing Location: [facility] [place] [facility] Administered by: Becca King MD on 04/29/25 09:51 Dose Route Admin Location Dispensed Lot Number Expiration Date [employer] Waiter/Waitress Cabin Class 185 unit subcut 200 units [id number] ALLERGAN /BOTOX Total Dispensed Waste 200 units 7.5 % Comments: see hpi Assessment & Plan Assessment & Plan (1) Chronic migraine without aura: Code(s): G43.709 - Chronic migraine without aura, not intractable, without status migrainosus Category: Medical Qualifiers: Status migrainosus presence: without status migrainosus Intractability: intractable Qualified Code(s): G43.719 - Chronic migraine without aura, intractable, without status migrainosus Plan Patient tolerated the procedure well she will call with any side effects Orders: Orders AMB Botulinum toxin Injection Today G43.719 - Chronic migraine without aura, intractable, without status migrainosus Coding Level of Care Code Est Pt Level 1 (06422) Diagnoses Intractable chronic migraine without aura and without status migrainosus G43.719 Status migrainosus presence: without status migrainosus Intractability: intractable CPT Codes Botox Injection - Botox 3: 23610 - Migraine ([id number])
== END 2025-04-29 09:31 | disposition home or self-care (01) ==
LOC: HO.HSMS 08:40
PROVIDERS: PCP Nurse Practitioner Family; Visit Provider Psychiatry & Neurology Neurology
DX: G43.719 Chronic migraine without aura, intractable, without status migrainosus (principal)
CPT/HCPCS: 64615

== ENCOUNTER → 2025-04-29 08:39 | Outpatient (BNVA) | payer OTHER, SELFPAY | PROVIDERS: PCP Nurse Practitioner Family; Visit Provider Psychiatry & Neurology Neurology | DX: G43.719 Chronic migraine without aura, intractable, without status migrainosus (principal); I10 Essential (primary) hypertension; M16.9 Osteoarthritis of hip, unspecified; F41.9 Anxiety disorder, unspecified; F17.210 Nicotine dependence, cigarettes, uncomplicated | CPT/HCPCS: 64615; 99211; J0585 ==

== ENCOUNTER 2025-07-29 08:42 | Outpatient (AMB) | payer OTHER, SELFPAY ==
--- NOTE | 2025-07-29 08:47 | A.OFFVIS_ITS ---
Vital Signs 07/29/25 08:48 Height 5 ft 4 in Weight 262 lb 8 oz BMI 45.1 BP 120/76 Blood Pressure Location Rt brachial Position Sitting Pulse 71 Pulse Source Pulse Oximeter Pulse Oximetry (%) 96 Oxygen Delivery Method Room Air Intake Visit Reasons: Botox Intake Note: Botox Tire Tester Required: No Accompanied by: Self / Same As Patient Allergies Yellow food dyi Adverse Reaction (Severe, Uncoded 04/29/25 08:57) Triggers migraines Nicoderm patch Adverse Reaction (Intermediate, Uncoded 04/29/25 08:57) Palpatation Amatriptan Adverse Reaction (Uncoded 04/29/25 08:57) Palpatation Medication List - Last Reconciled 07/30/25 by Becca King MD [id number] 50-325-40 mg 1 tab PO Q4H PRN 30 days MDD 2 tabs diclofenac sodium 1% topical QID lisinopril 10 mg PO DAILY lorazepam 1 mg PO DAILY PRN metoprolol tartrate 25 mg PO BID mupirocin 2% topical TID ondansetron 4 mg PO Q8H PRN HPI Comments Details: ? 45y/o female comes for treatment of migraines with botox How many migraine days prior to botox 20-30 days How long do the migraines last- 1 day Intensity of migraine 10/10 ER visits related to migraine - 1/month Effectiveness of botox from last two treatment(s) How many migraine days since receiving treatment: 6 a month Change? in intensity of migraine? 5/10 Change in frequency of migraine?decreased Change in use of acute medication for migraine?decreased Change in quality of life? improved ER visits related to migraine?none Have at least three months elapsed since last treatment (Last botox date - frequency of injections)3 months ??? Most frequent reported adverse reactions following injection of botox for chronic migraine include neck pain (9%), headache(5%), eyelid ptosis(4%), migraine(4%), muscular weakness(4%), musculuskeletal stiffness(4%), bronchitis(3%), injection site pain (3%), musculoskeletal pain(3%), myalgia(3%), facial paresis(2%), HTN(2%) and muscle spasms(2%) were discussed in detail. ??? Botulinum toxin typeA 200units Lot no [id number] expiration Aug 2027 was diluted with 4 cc of normal saline . ??? Muscles injected- ??? Frontalis 4 sites ??? Procerus 1 site ??? Sample Preparation Supervisor- 2 sites ??? Temporalis- 8 sites ??? Occipitalis- 6 sites ??? Cervical paraspinals- 4 sites ??? Trapezius- 6 sites- 10 units each ??? 5 units each in 31 site ??? Total use- 185units ??? Discarded-15units [facility] Medical History Chronic migraine without aura HTN (hypertension) Arthritis, hip Anxiety Surgical History History of hip replacement Family History Maternal Grandmother Breast cancer HTN (hypertension) Mother Heart disease Father Heart disease HTN (hypertension) Bladder cancer Family/Other Psoriasis Social History Alcohol intake: current Alcohol intake frequency: holidays/special occasions only Patient Tobacco Use Status: Current everyday Tobacco user Physical Exam Vital Signs: Last Vital Signs Pulse 71 07/29/25 08:48 BP 120/76 07/29/25 08:48 Pulse Ox 96 07/29/25 08:48 Oxygen Delivery Method Room Air 07/29/25 08:48 BMI result Body Mass Index 45.1 Const General: cooperative, healthy appearing and comfortable Nutritional Appearance: overweight Orientation/consciousness: patient oriented x3 Neuro General: patient oriented x3, tone normal, moves all extremities and no focal motor deficits Cranial nerves: Yes Facial sensation intact/muscles of mastication intact, Yes Bilaterally intact EOM present, Yes Nystagmus not present, Yes Normal facial strength present, Yes Midline tongue present and Yes Symmetric palate elevation present Cognition (Neuro): normal cognition Motor exam (neuro): 5/5 motor strength present throughout and Normal motor muscle tone present throughout Office Procedures Botulinum toxin Injection 66669 - Migraine Procedure code (CPT) selection complete Office Meds onabotulinumtoxinA 200 unit solution for injection Performing Provider: Becca King MD Performing Location: [facility] [place] [facility] Administered by: Becca King MD on 07/30/25 09:32 Dose Route Admin Location Dispensed Lot Number Expiration Date [facility] Medical Stenographer 185 unit subcut 200 units [id number] ALLERGAN /BOTOX Total Dispensed Waste 200 units 7.5 % Comments: see hpi Assessment & Plan Assessment & Plan (1) Chronic migraine without aura: Code(s): G43.709 - Chronic migraine without aura, not intractable, without status migrainosus Category: Medical Qualifiers: Status migrainosus presence: without status migrainosus Intractability: intractable Qualified Code(s): G43.719 - Chronic migraine without aura, intractable, without status migrainosus Plan Patient tolerated the procedure well she will call with any side effects Orders: Orders AMB Botulinum toxin Injection 07/29/25 G43.719 - Chronic migraine without aura, intractable, without status migrainosus Coding Level of Care Code Est Pt Level 1 (52942) Diagnoses Intractable chronic migraine without aura and without status migrainosus G43.719 Status migrainosus presence: without status migrainosus Intractability: intractable CPT Codes Botox Injection - Botox 3: 53624 - Migraine ([id number])
[2025-07-29 08:48] VITALS: BP 120/76; PULSE 71; O2SAT 96; BMI 45.1
--- OUTSIDE RECORDS SUMMARY | 2025-07-29 09:12 | XMS_ITS | Clinical Summary ---
Author Organization [employer] Address [address] [facility] [address] [place] [address] Care Team Providers Care Grades 1 6 Tutor Name Role Phone Unavailable Primary Care Provider [...] 11/24/2023 Dental caries into pulp 11/24/2023 Immunizations Immunization Administration Dates Next Due Tdap 03/07/2023 Social [...] Panel 1980 SDOH Screening 1980 Sigmoidoscopy 1980 Disability Screening 1980 Alcohol/Substance Use Screening 1992 Family Planning (PISQ) 01/26/1995 HPV Vaccines (1 - 3-dose series) 01/26/1995 Hepatitis C Screening 01/26/1998 Hepatitis B Vaccines (1 of 3 - 19+ 3-dose series) 01/26/1999 Pneumococcal Vaccine: Pediatrics (0 to 5 Years) and At-Risk Patients (6 to 49) Years (1 of 2 - PCV) 01/26/1999 Pap Smear 01/26/2001 Cervical Cancer Screening 01/26/2010 HPV/Cotest 01/26/2010 Mammogram 2020 Dental X-Ray: Bitewings 11/23/2024 11/22/2023 Tobacco Screening 03/26/2025 03/26/2024 COVID-19 Vaccine ( - season) 2025 Influenza Vaccine (#1) 2025 0, 08/16/2019, 07/26/2018, Additional history exists Zoster Vaccines (1 of 2) 01/26/2030 DTaP/Tdap/Td [...] patient's age to complete this topic Meningococcal B Vaccine Aged Out No l onger eligible based on patient's age to complete [...]
--- OUTSIDE RECORDS SUMMARY | 2025-07-29 09:12 | XMS_ITS | Clinical Summary ---
[place] [address] Care Team Providers Care Card Filer Name Role Phone Unavailable Primary Care Provider Unavailabl e Social History Tobacco Use Types Packs/Day Years Used Date Smoking Tobacco: Never Assessed Comments Unknown Sex and Gender Information Value Date Recorded Sex Assigned at Not on file Legal Sex Female 7:39 PM EDT Gender Identity Not on file Sexual Orientation Not on file Plan of Treatment Health Maintenance Due Date Last Done Comments CT Colonography 1980 Colonoscopy 1980 Colorectal Cancer Screening 1980 FIT DNA 1980 FIT 1980 Sigmoidoscopy (10 year) with FIT yearly 1980 Sigmoidoscopy 1980 HIV screen 01/26/1998 Hepatitis C Screening 01/26/1998 Hepatitis B vaccine (0-59 yrs) and Risk (1) 01/26/1999 Tetanus/Diphtheria/Pertussis Vaccines (1 - Tdap) 01/26 HPV test 01/26/2010 PAP Smear 01/26/2010 Breast Cancer Share Decision Needed 2020 Breast Cancer screening 2020 Covid-19 Vaccine ( - season) 2025 Influenza (Flu) vaccine (1 o f 1 - Influenza standard series) 06/16/2025 Insurance MEDICAID MANAGED SD [facility]
== END 2025-07-29 09:05 | disposition home or self-care (01) ==
LOC: HO.HSMS 08:43
PROVIDERS: PCP Nurse Practitioner Family; Visit Provider Psychiatry & Neurology Neurology
DX: G43.719 Chronic migraine without aura, intractable, without status migrainosus (principal)
CPT/HCPCS: 64615

== ENCOUNTER → 2025-07-29 08:42 | Outpatient (BNVA) | payer OTHER, SELFPAY | PROVIDERS: PCP Nurse Practitioner Family; Visit Provider Psychiatry & Neurology Neurology | DX: G43.719 Chronic migraine without aura, intractable, without status migrainosus (principal) | CPT/HCPCS: 64615; 99211; J0585 ==